=== PATIENT | female | born 1930 | race Caucasian/White ===

== ENCOUNTER → 2016-07-21 | Outpatient (REF) | payer MEDICARE ==
[2016-07-21 11:33] LABS: MEAN CORPUSCULAR HEMOGLOBIN 31.7 pg (27.0-33.0); MEAN CORPUSCULAR HGB CONC 32.7 g/dl (32.0-36.5); MEAN CORPUSCULAR VOLUME 97.2 fl (80.0-96.0)
[2016-07-21 11:56] LABS: ALBUMIN 3.5 GM/DL (3.2-5.2); ALBUMIN/GLOBULIN RATIO 1.25 (1.00-1.93); ALKALINE PHOSPHATASE 68 U/L (45-117); ALT/SGPT 16 U/L (12-78); ANION GAP 7 MEQ/L (8-16); AST/SGOT 11 U/L (15-37); BILIRUBIN,TOTAL 0.5 MG/DL (0.2-1.0); BLOOD UREA NITROGEN 23 MG/DL (7-18); CALCIUM LEVEL 8.7 MG/DL (8.8-10.2); CARBON DIOXIDE LEVEL 29 MEQ/L (21-32); CHLORIDE LEVEL 104 MEQ/L (98-107); CREATININE FOR GFR 0.88 MG/DL (0.55-1.02); GLOMERULAR FILTRATION RATE > 60.0 (>32); GLUCOSE, FASTING 97 MG/DL (83-110); POTASSIUM SERUM 4.9 MEQ/L (3.5-5.1); SODIUM LEVEL 140 MEQ/L (136-145); TOTAL PROTEIN 6.3 GM/DL (6.4-8.2)
== END ==
LOC: M SFHCPLAZ 09:01
PROVIDERS: ATTEND Internal Medicine
DX: R41.3 Other amnesia (principal); R60.0 Localized edema; R94.6 Abnormal results of thyroid function studies; E55.9 Vitamin D deficiency, unspecified

== ENCOUNTER → 2017-03-10 | Outpatient (CLI) | payer MEDICARE ==
[2017-03-10 17:33] LABS: ALBUMIN 3.7 GM/DL (3.2-5.2); ALBUMIN/GLOBULIN RATIO 1.23 (1.00-1.93); BILIRUBIN,TOTAL 0.6 MG/DL (0.2-1.0); CALCIUM LEVEL 9.1 MG/DL (8.8-10.2); CREATININE FOR GFR 0.98 MG/DL (0.55-1.02); GLOMERULAR FILTRATION RATE 57.6 (>32); POTASSIUM SERUM 4.9 MEQ/L (3.5-5.1); TOTAL PROTEIN 6.7 GM/DL (6.4-8.2)
[2017-03-10 17:48] LABS: BASO # 0.1 10^3/uL (0.0-0.2); BASO % 0.5 % (0.0-1.0); EOS # 0.3 10^3/uL (0.0-0.50); EOS % 3.2 % (0.0-3.0); IMMATURE GRANULOCYTE % 0.6 % (0-0); LYMPH # 2.9 10^3/uL (1.5-4.5); LYMPH % 30.9 % (24.0-44.0); MEAN CORPUSCULAR HEMOGLOBIN 30.7 pg (27.0-33.0); MEAN CORPUSCULAR HGB CONC 32.6 g/dl (32.0-36.5); MONO # 0.7 10^3/uL (0.0-0.8); MONO % 7.7 % (0.0-5.0); NEUTROPHILS # 5.3 10^3/uL (1.8-7.7); NEUTROPHILS % 57.1 % (36.0-66.0); PLATELET COUNT, AUTOMATED 236 10^3/uL (150-450); WHITE BLOOD COUNT 9.4 10^3/uL (4.0-10.0)
== END ==
LOC: M WUC 12:35
PROVIDERS: ATTEND Physician Assistant
DX: R53.83 Other fatigue (principal)

== ENCOUNTER → 2017-09-16 | Outpatient (REF) | payer MEDICARE ==
[2017-09-16 12:11] LABS: HEMATOCRIT 40.3 % (36.0-47.0); HEMOGLOBIN 13.4 g/dl (12.0-15.5); MEAN CORPUSCULAR HEMOGLOBIN 31.4 pg (27.0-33.0); MEAN CORPUSCULAR HGB CONC 33.3 g/dl (32.0-36.5); MEAN CORPUSCULAR VOLUME 94.4 fl (80.0-96.0); PLATELET COUNT, AUTOMATED 219 10^3/uL (150-450); RED BLOOD COUNT 4.27 10^6/uL (4.00-5.40); RED CELL DISTRIBUTION WIDTH 13.5 % (11.5-14.5); WHITE BLOOD COUNT 7.2 10^3/uL (4.0-10.0)
[2017-09-16 12:43] LABS: TOTAL 25(OH) VITAMIN D 34.1 NG/ML (30.0-100.0)
[2017-09-16 12:58] LABS: ALBUMIN 3.2 GM/DL (3.2-5.2); ALBUMIN/GLOBULIN RATIO 1.07 (1.00-1.93); ALKALINE PHOSPHATASE 74 U/L (45-117); ALT/SGPT 13 U/L (12-78); ANION GAP 3 MEQ/L (8-16); AST/SGOT 11 U/L (7-37); BILIRUBIN,TOTAL 0.5 MG/DL (0.2-1.0); BLOOD UREA NITROGEN 22 MG/DL (7-18); CALCIUM LEVEL 8.7 MG/DL (8.8-10.2); CARBON DIOXIDE LEVEL 32 MEQ/L (21-32); CHLORIDE LEVEL 108 MEQ/L (98-107); CREATININE FOR GFR 0.73 MG/DL (0.55-1.30); GLOMERULAR FILTRATION RATE > 60.0 (>32); GLUCOSE, FASTING 94 MG/DL (70-100); MAGNESIUM LEVEL 2.1 MG/DL (1.8-2.4); POTASSIUM SERUM 4.7 MEQ/L (3.5-5.1); SODIUM LEVEL 143 MEQ/L (136-145); TOTAL PROTEIN 6.2 GM/DL (6.4-8.2)
== END ==
LOC: M SFHCPLAZ 10:15
DX: J45.909 Unspecified asthma, uncomplicated (principal); R60.0 Localized edema; Z79.899 Other long term (current) drug therapy; R94.6 Abnormal results of thyroid function studies; E55.9 Vitamin D deficiency, unspecified
CPT/HCPCS: 83735

== ENCOUNTER → 2018-03-24 | Outpatient (REF) | payer MEDICARE ==
[2018-03-24 12:51] LABS: ALBUMIN 3.3 GM/DL (3.2-5.2); ALKALINE PHOSPHATASE 63 U/L (45-117); ALT/SGPT 13 U/L (12-78); ANION GAP 6 MEQ/L (8-16); AST/SGOT 14 U/L (7-37); BILIRUBIN,TOTAL 0.7 MG/DL (0.2-1.0); BLOOD UREA NITROGEN 16 MG/DL (7-18); CALCIUM LEVEL 8.6 MG/DL (8.8-10.2); CARBON DIOXIDE LEVEL 29 MEQ/L (21-32); CHLORIDE LEVEL 108 MEQ/L (98-107); CREATININE FOR GFR 0.79 MG/DL (0.55-1.30); GLOMERULAR FILTRATION RATE > 60.0 (>32); GLUCOSE, FASTING 91 MG/DL (70-100); SODIUM LEVEL 143 MEQ/L (136-145); TOTAL PROTEIN 6.3 GM/DL (6.4-8.2)
== END ==
LOC: M SFHCPLAZ 10:16
DX: R60.0 Localized edema (principal)
CPT/HCPCS: 83735

== ENCOUNTER → 2018-09-23 | Outpatient (REF) | payer MEDICARE ==
[2018-09-23 12:36] LABS: HEMATOCRIT 42.4 % (36.0-47.0); MEAN CORPUSCULAR HEMOGLOBIN 32.6 pg (27.0-33.0); MEAN CORPUSCULAR VOLUME 98.8 fl (80.0-96.0); PLATELET COUNT, AUTOMATED 221 10^3/uL (150-450); RED BLOOD COUNT 4.29 10^6/uL (4.00-5.40); WHITE BLOOD COUNT 6.9 10^3/uL (4.0-10.0)
[2018-09-23 12:46] LABS: ALBUMIN 3.4 GM/DL (3.2-5.2); ALT/SGPT 16 U/L (12-78); BILIRUBIN,TOTAL 0.6 MG/DL (0.2-1.0); BLOOD UREA NITROGEN 27 MG/DL (7-18); CALCIUM LEVEL 8.6 MG/DL (8.8-10.2); CARBON DIOXIDE LEVEL 33 MEQ/L (21-32); CHLORIDE LEVEL 105 MEQ/L (98-107); CREATININE FOR GFR 0.79 MG/DL (0.55-1.30); GLOMERULAR FILTRATION RATE > 60.0 (>32); GLUCOSE, FASTING 99 MG/DL (70-100); MAGNESIUM LEVEL 2.2 MG/DL (1.8-2.4); POTASSIUM SERUM 4.8 MEQ/L (3.5-5.1); SODIUM LEVEL 140 MEQ/L (136-145); TOTAL PROTEIN 6.5 GM/DL (6.4-8.2)
== END ==
LOC: M SFHCPLAZ 10:03
PROVIDERS: ATTEND Internal Medicine
DX: Z86.010 Personal history of colon polyps (principal); R60.0 Localized edema; R94.6 Abnormal results of thyroid function studies

== ENCOUNTER → 2019-03-24 | Outpatient (REF) | payer MEDICARE ==
[2019-03-24 11:41] LABS: ALBUMIN 3.8 GM/DL (3.2-5.2); BILIRUBIN,TOTAL 0.6 MG/DL (0.2-1.0); CALCIUM LEVEL 9.4 MG/DL (8.8-10.2); CREATININE FOR GFR 1.09 MG/DL (0.55-1.30); GLOMERULAR FILTRATION RATE 50.5 (>32); TOTAL PROTEIN 6.9 GM/DL (6.4-8.2)
== END ==
LOC: M SFHCPLAZ 08:55
PROVIDERS: ATTEND Internal Medicine
DX: R60.0 Localized edema (principal)

== ENCOUNTER → 2019-09-27 | Outpatient (REF) | payer MEDICARE ==
[~2019-09-27] MED LIST: BREO1INH PO; FURO80TA2 PO; GABA-1171 PO; NAPR-855 PO; SPIR-10 PO
[2019-09-27 17:10] LABS: HEMATOCRIT 39.5 % (36.0-47.0); MEAN CORPUSCULAR HEMOGLOBIN 32.2 pg (27.0-33.0); MEAN CORPUSCULAR HGB CONC 32.9 g/dl (32.0-36.5); MEAN CORPUSCULAR VOLUME 97.8 fl (80.0-96.0); PLATELET COUNT, AUTOMATED 249 10^3/uL (150-450); RED BLOOD COUNT 4.04 10^6/uL (4.00-5.40); WHITE BLOOD COUNT 7.2 10^3/uL (4.0-10.0)
[2019-09-27 17:24] LABS: ALBUMIN 3.2 GM/DL (3.2-5.2); ALT/SGPT 14 U/L (12-78); BILIRUBIN,TOTAL 0.3 MG/DL (0.2-1.0); BLOOD UREA NITROGEN 24 MG/DL (7-18); CALCIUM LEVEL 9.3 MG/DL (8.8-10.2); CARBON DIOXIDE LEVEL 30 MEQ/L (21-32); CHLORIDE LEVEL 109 MEQ/L (98-107); CREATININE FOR GFR 0.82 MG/DL (0.55-1.30); GLOMERULAR FILTRATION RATE > 60.0 (>32); GLUCOSE, FASTING 106 MG/DL (70-100); POTASSIUM SERUM 4.7 MEQ/L (3.5-5.1); SODIUM LEVEL 142 MEQ/L (136-145); TOTAL 25(OH) VITAMIN D 36.3 NG/ML (30.0-100.0); TOTAL PROTEIN 6.2 GM/DL (6.4-8.2)
== END ==
LOC: M SFHCPLAZ 15:02
PROVIDERS: ATTEND Internal Medicine
DX: J45.909 Unspecified asthma, uncomplicated (principal); R60.0 Localized edema; R94.6 Abnormal results of thyroid function studies; M85.80 Other specified disorders of bone density and structure, unspecified site
CPT/HCPCS: 36415; 80053; 82306; 84443; 85027; G0463

== ENCOUNTER 2019-10-04 12:55 | Emergency (ER) | payer MEDICARE ==
[~2019-10-04] VITALS: Ht 152.4 cm; Wt 61.4 kg
[2019-10-04] MEDS ORDERED: BREO1INH PO (13:09)
[2019-10-04] MEDS ORDERED: FURO80TA2 PO (13:09)
[2019-10-04] MEDS ORDERED: NAPR-855 PO (13:09)
[2019-10-04] MEDS ORDERED: SPIR-10 PO (13:09)
[2019-10-04] MEDS ORDERED: ACETAMINOPHEN 325 MG TAB PO ONE (13:15)
[2019-10-04] MEDS ORDERED: GABA-1171 PO (13:19)
--- NOTE | 2019-10-04 14:57 | REP ---
Right shoulder series: Four views. History: Injury in a fall. Findings: Four views right shoulder demonstrate chronic arthropathy changes with sclerosis and remodeling of the glenohumeral articulation. There are multiple loose bodies suspected in the superior aspect of the glenohumeral articulation. No fracture is seen. There is diffuse osteoporosis. Impression: Advanced chronic arthropathy with remodeling and loose bodies in the right glenohumeral articulation. Diffuse osteoporosis. No acute traumatic abnormality seen. Electronically Signed by Jack Beckwith MD 10/04/2019 02:48 P
--- NOTE | 2019-10-04 14:57 | REP ---
Right humerus: Two views. History: Injury in a fall. Findings: Two views of the right humerus demonstrate advanced degenerative arthropathy of the right glenohumeral articulation. There is elbows joint spurring as well. Diffuse osteopenia is noted. No fracture or subluxation is seen. Impression: No fracture noted. Advanced arthropathy at the shoulder. Electronically Signed by Jack Beckwith MD 10/04/2019 02:49 P
--- NOTE | 2019-10-04 14:58 | REP ---
Right knee series: Four views. History: Injury in a fall. Findings: Four views right knee demonstrate osteoarthritic spurring at the medial and patellofemoral compartment. Small joint effusion is felt to be present. There is chondrocalcinosis medially and laterally. No fractures seen. Impression: No fracture noted. Degenerative changes. Small joint effusion suspected. Electronically Signed by Jack Beckwith MD 10/04/2019 02:49 P
[2019-10-04 17:08] VITALS: BP 156/72
== END 2019-10-04 17:07 | disposition home or self-care (01) ==
LOC: M ED 12:55 → EDBD 12:55 → M ED 17:07
DX: S40.011A Contusion of right shoulder, initial encounter (principal); S80.01XA Contusion of right knee, initial encounter; W19.XXXA Unspecified fall, initial encounter; Y92.099 Unspecified place in other non-institutional residence as the place of occurrence of the external cause; Y93.01 Activity, walking, marching and hiking; Y99.9 Unspecified external cause status; Z99.89 Dependence on other enabling machines and devices; I10 Essential (primary) hypertension; J44.9 Chronic obstructive pulmonary disease, unspecified; M19.011 Primary osteoarthritis, right shoulder; M25.761 Osteophyte, right knee; Z88.0 Allergy status to penicillin

== ENCOUNTER → 2020-06-24 | Outpatient (CLI) | payer MEDICARE ==
[2020-06-24 16:30] LABS: BASO # 0.1 10^3/uL (0.0-0.2); BASO % 0.7 % (0.0-1.0); EOS # 0.2 10^3/uL (0.0-0.5); HEMATOCRIT 42.6 % (36.0-47.0); HEMOGLOBIN 13.8 g/dl (12.0-15.5); LYMPH # 2.6 10^3/uL (1.5-5.0); MEAN CORPUSCULAR HEMOGLOBIN 31.9 pg (27.0-33.0); MEAN CORPUSCULAR HGB CONC 32.4 g/dl (32.0-36.5); MEAN CORPUSCULAR VOLUME 98.4 fl (80.0-96.0); MONO # 0.7 10^3/uL (0.0-0.8); MONO % 8.7 % (2.0-8.0); NEUTROPHILS # 4.9 10^3/uL (1.5-8.5); NEUTROPHILS % 57.1 % (36.0-66.0); PLATELET COUNT, AUTOMATED 242 10^3/uL (150-450); RED BLOOD COUNT 4.33 10^6/uL (4.00-5.40); WHITE BLOOD COUNT 8.5 10^3/uL (4.0-10.0)
[2020-06-24 17:01] LABS: ALBUMIN 3.5 GM/DL (3.2-5.2); BILIRUBIN,TOTAL 0.3 MG/DL (0.2-1.0); CALCIUM LEVEL 9.9 MG/DL (8.8-10.2); CREATININE FOR GFR 1.08 MG/DL (0.55-1.30); POTASSIUM SERUM 4.3 MEQ/L (3.5-5.1); THYROID STIMULATING HORMONE 3.32 uIU/ML (0.358-3.740); TOTAL 25(OH) VITAMIN D 38.8 NG/ML (30.0-100.0); TOTAL PROTEIN 6.6 GM/DL (6.4-8.2)
== END ==
LOC: M WUC 14:35
PROVIDERS: ATTEND Internal Medicine
DX: R60.0 Localized edema (principal); J45.909 Unspecified asthma, uncomplicated; M85.80 Other specified disorders of bone density and structure, unspecified site; R94.6 Abnormal results of thyroid function studies; Z86.010 Personal history of colon polyps

== ENCOUNTER → 2020-07-09 | Outpatient (CLI) | payer MEDICARE ==
[2020-07-09 15:51] LABS: PLATELET COUNT, AUTOMATED 223 10^3/uL (150-450)
[2020-07-09 16:10] LABS: COLLAGEN EPINEPHRINE 110 SECONDS (74-162)
== END ==
LOC: M WUC 14:25
PROVIDERS: ATTEND Physician Assistant
DX: M47.812 Spondylosis without myelopathy or radiculopathy, cervical region (principal)

== ENCOUNTER 2020-11-25 18:37 | Emergency (ER) | payer MEDICARE ==
[~2020-11-25] VITALS: Ht 142.2 cm; Wt 65.9 kg
[2020-11-25] MEDS ORDERED: ALBUTEROL SULFATE 2.5 MG/0.5 ML INH NEB SOLN INH PRN (20:40)
--- NOTE | 2020-11-25 21:22 | REPVR ---
PROCEDURE INFORMATION: Exam: XR Chest Exam date and time: 11/25/2020 8:35 PM Age: 89 years old Clinical indication: Cough and dyspnea; Additional info: Dyspnea/cough TECHNIQUE: Imaging protocol: XR of the chest. Views: 1 view. COMPARISON: CR CHEST 2 VIEW 07/09/2015 5:59 PM FINDINGS: Lungs: There are no interval infiltrates. Pleural spaces: Unremarkable. No pleural effusion. No pneumothorax. Heart/Mediastinum: The heart and mediastinum are unchanged. Bones/joints: Degenerative change of the shoulders bilaterally. Mild levoscoliosis of the lower thoracic spine which is unchanged. IMPRESSION: Stable chest since 07/09/2015. No acute interval process is identified. Electronically signed by: Blayne Paniagua On 11/25/2020 21:22:09 PM
[2020-11-25 21:42] LABS: BASO % 0.7 % (0.0-1.0); EOS # 0.4 10^3/uL (0.0-0.5); EOS % 7.1 % (0.0-3.0); HEMATOCRIT 40.8 % (36.0-47.0); LYMPH # 1.5 10^3/uL (1.5-5.0); LYMPH % 27.5 % (24.0-44.0); MEAN CORPUSCULAR HEMOGLOBIN 30.6 pg (27.0-33.0); MEAN CORPUSCULAR HGB CONC 31.9 g/dl (32.0-36.5); MONO # 0.7 10^3/uL (0.0-0.8); MONO % 13.4 % (2.0-8.0); NEUTROPHILS # 2.8 10^3/uL (1.5-8.5); NEUTROPHILS % 51.1 % (36.0-66.0); PLATELET COUNT, AUTOMATED 200 10^3/uL (150-450); RED BLOOD COUNT 4.25 10^6/uL (4.00-5.40); WHITE BLOOD COUNT 5.5 10^3/uL (4.0-10.0)
[2020-11-25 22:09] LABS: ALBUMIN 3.2 GM/DL (3.2-5.2); ALT/SGPT 16 U/L (12-78); BILIRUBIN,DIRECT 0.1 MG/DL (0.0-0.2); BILIRUBIN,TOTAL 0.3 MG/DL (0.2-1.0); BLOOD UREA NITROGEN 18 MG/DL (7-18); CALCIUM LEVEL 8.9 MG/DL (8.8-10.2); CARBON DIOXIDE LEVEL 30 MEQ/L (21-32); CHLORIDE LEVEL 110 MEQ/L (98-107); CK-MB VALUE MASS < 1.0 NG/ML (<3.6); CPK CREATINE PHOSPHOKINASE 27 U/L (26-192); CREATININE FOR GFR 0.96 MG/DL (0.55-1.30); GLOMERULAR FILTRATION RATE 58.4 (>32); GLUCOSE, FASTING 86 MG/DL (70-100); NT-PRO BNP 494 PG/ML (<450); POTASSIUM SERUM 4.6 MEQ/L (3.5-5.1); SODIUM LEVEL 144 MEQ/L (136-145); TOTAL PROTEIN 6.1 GM/DL (6.4-8.2); TROPONIN I < 0.02 NG/ML (< 0.10)
[2020-11-25] MEDS ORDERED: ALBUTEROL 90 MCG/ACT 8GM HFA INHALER INH SCH (22:15)
[2020-11-25 22:39] VITALS: BP 160/70
[2020-11-25] MEDS ORDERED: GABA-1171 PO (22:48)
[2020-11-25] MEDS ORDERED: IPRA0.00 INH (22:48)
[2020-11-25] MEDS ORDERED: HOME MED LIST COMPLETE! XX SCH (22:50)
--- NOTE | 2020-11-26 07:44 | ECGEPIP ---
[facility] - ED Test Date: 2020-11-25 Pat Name: TIGRE BAHENA Department: Room: - Gender: Female Contracts Administrator: : [id number] Requested By: KAY Diaz PA-C Order Number: [id number] Reading MD: Ramírez Youngblood Measurements Intervals [place] Rate: 71 P: 63 ME: 176 QRS: -44 QRSD: 84 T: 17 QT: 378 QTc: 410 Interpretive Statements Normal sinus rhythm Left axis deviation Delayed anterior R wave progression Minimal voltage criteria for LVH, may be normal variant Nonspecific ST-T wave abnormalities Baseline artifact Comparison tracing not on file Electronically Signed on 11-26-2020 7:43:35 EDT by Ramírez Youngblood
== END 2020-11-25 23:34 | disposition home or self-care (01) ==
LOC: M ED 18:37
DX: U07.1 COVID-19 (principal); J45.909 Unspecified asthma, uncomplicated; Z79.51 Long term (current) use of inhaled steroids; Z79.899 Other long term (current) drug therapy; Z88.0 Allergy status to penicillin
CPT/HCPCS: 36600; 71045; 80048; 80076; 82550; 82553; 82803; 83880; 84484; 85025; 93005; 99284; M0243

== ENCOUNTER 2020-11-25 23:35 | Outpatient (CLI) | payer MEDICARE ==
--- NOTE | 2020-11-25 22:55 | HPEPDOC ---
[facility] Medical History & Physical Date of Admission Nov 25, 2020 Date of Service: Nov 25, 2020 Primary Care Physician: Cullen Sosa Attending Physician: LEONEL DAHL MD History and Physical TIME OF SERVICE: 1205am CHIEF COMPLAINT: exposure to person with COVID HISTORY OF PRESENT ILLNESS: a 89 yr old F went to an urgent care center to get tested for COVID today because her and her daughter were exposed to someone with COVID. She has had a cough mild shortness of breath, congestion & fatigue but denies feeling like her asthma is acting up. Surprisingly her COVID-19 test was positive, while her daughters test was negative. She has taken Moderna vaccines for COVID. REVIEW OF SYSTEMS: 10-point review of systems negative except as listed in HPI PAST MEDICAL/ SURGICAL HISTORY: Asthma DLP ALLERGIES: Please see below. HOME MEDICATIONS: Please see below. PHYSICAL EXAMINATION: Vital Signs Date Time Temp Pulse Resp B/P (MAP) Pulse Ox O2 Delivery O2 Flow Rate FiO2 11/25/20 22:39 98.2 76 16 160/70 (100) 97 Room Air GENERAL APPEARANCE: well nourished and developed / NAD LUNGS: lungs are CTAB on RA /no wheezing PSYCHIATRIC: A&Ox 3 LABORATORY DATA: CBC and Chemistry reviewed - unremarkable IMAGING: Chest Xray "IMPRESSION: Stable chest since 07/09/2015. No acute interval process is identified." MICROBIOLOGY: COVID 19 + ASSESSMENT: is an 89 yr old with a hx of Asthma who will receive MAB infusion for COVID 19 infection (despite receiving her vaccines.) PLAN: 1 Post vaccination COVID-19 infection Plan: COVID anti-body infusion order set Home Medications Scheduled Fluticasone/Vilanterol (Breo Ellipta 100-25 Mcg INH) 1 Each Blst.w.dev, 1 PUFF PO DAILY Furosemide (Furosemide) 80 Mg Tablet, 160 MG PO DAILY Gabapentin (Gabapentin) 100 Mg Capsule, 200 MG PO BID Spironolactone (Spironolactone) 25 Mg Tablet, 50 MG PO DAILY Scheduled PRN Ipratropium/Albuterol Sulfate (Iprat-Albut 0.5-3(2.5) mg/3 ml) 3 Ml Ampul.neb, 3 ML INH Q4H PRN for COUGH/WHEEZE/SOB Naproxen (Naproxen) 375 Mg Tablet, 375 MG PO BID PRN for MODERATE PAIN (PS 5-7) Allergies Coded Allergies: Penicillins (Verified Allergy, Unknown, 10/04/19) LEONEL DAHL MD Nov 25, 2020 22:55
[2020-11-25 23:35] VITALS: BP 152/88
[~2020-11-25 23:35] MED LIST changes: +ALBUTEROL 90 MCG/ACT 8GM HFA INHALER INH PRN; +ALBUTEROL SULFATE 2.5 MG/0.5 ML INH NEB SOLN INH PRN; +EPINEPHrine INJ 1 MG/ML 1ML AMP IM PRN; +IPRA0.00 INH; +NS 1,000 ML IV SCH; +diphenhydrAMINE 50MG/ML VIAL (J1200) IV PRN; +methylPREDNISolone 125MG 2ML VIAL IV PRN
[2020-11-26 01:20] VITALS: BP 152/88
[2020-11-26 01:45] VITALS: BP 150/90
[2020-11-26] MEDS ORDERED: CASIRIVIMAB/IMDEVIMAB 1,200 MG in NS 250 ML IV ONE (02:00)
[2020-11-26 02:15] VITALS: BP 150/88
== END 2020-11-26 03:29 | disposition home or self-care (01) ==
LOC: M OPCLI4 23:35 → M 4MAIN 11-26 00:18 → M OPCLI4 11-26 03:29
PROVIDERS: ATTEND Internal Medicine
DX: U07.1 COVID-19 (principal); Z88.0 Allergy status to penicillin

== ENCOUNTER → 2021-02-18 | Outpatient (CLI) | payer MEDICARE ==
[~2021-02-18] MED LIST changes: -ALBUTEROL 90 MCG/ACT 8GM HFA INHALER INH PRN; -ALBUTEROL SULFATE 2.5 MG/0.5 ML INH NEB SOLN INH PRN; -EPINEPHrine INJ 1 MG/ML 1ML AMP IM PRN; -NS 1,000 ML IV SCH; -diphenhydrAMINE 50MG/ML VIAL (J1200) IV PRN; -methylPREDNISolone 125MG 2ML VIAL IV PRN
--- NOTE | 2021-02-18 12:07 | REPVR ---
PROCEDURE INFORMATION: Exam: MR Lumbar Spine Without Contrast Exam date and time: 02/18/2021 9:53 AM Age: 89 years old Clinical indication: Low back pain; Additional info: Spondyls w/o myelopathy or radiculopathy, lumbosacr region TECHNIQUE: Imaging protocol: Multiplanar magnetic resonance images of the lumbar spine without intravenous contrast. COMPARISON: No relevant prior studies available. FINDINGS: Vertebrae: Localizing view shows S-shaped scoliosis. There is grade 1 retrolisthesis T12 on L1 and L1 on L2 and grade 1 anterolisthesis L3 on L4 and L4 on L5. There is diffuse disc desiccation and disc height loss. There are endplate degenerative marrow changes. No evidence of suspicious bone marrow lesions. Spinal cord: Normal signal. No cord compression. T12-L1: T11-T12 and T12-L1 show posterior osteophytes, disc bulges, and facet degenerative changes with mild bilateral T11-T12 and right T12-L1 and moderate to severe left T12-L1 neural foraminal narrowing on sagittal imaging. L1-L2: Diffuse disc bulge, thickening of ligamentum flavum, posterior osteophyte, and facet degenerative changes. There is severe bilateral neural foraminal narrowing. There is mild spinal stenosis. L2-L3: Diffuse disc bulge, thickening of ligamentum flavum, posterior osteophyte, and facet degenerative changes. There is moderate to severe spinal stenosis. There is moderate right and moderate to severe left neural foraminal narrowing. L3-L4: Diffuse disc bulge, thickening of ligamentum flavum, posterior osteophyte, and facet degenerative changes. There is high-grade spinal stenosis with completely effaced spinal fluid around cauda equina. There is severe right and moderate to severe left neural foraminal narrowing. L4-L5: Diffuse disc bulge, thickening of ligamentum flavum, posterior osteophyte, and facet degenerative changes. There is moderate spinal stenosis. There is severe right and mild left neural foraminal narrowing. L5-S1: L5-S1 shows moderate disc bulge and facet degenerative changes. There is no evidence of spinal stenosis or neural foraminal narrowing. Soft tissues: There is subcutaneous edema in posterior soft tissues typically nonsignificant finding. IMPRESSION: Degenerative changes as described. Spinal stenosis is greatest and high-grade at L3-L4, moderate to severe L2-L3, moderate L4-L5, and mild L1-L2. Neural foraminal narrowing is severe bilateral L1-L2, moderate right and moderate to severe left L2-L3, severe right and moderate to severe left L3-L4, severe right and mild left L4-L5. Electronically signed by: Patience Jones On 02/18/2021 12:07:26 PM
== END ==
LOC: M RAD 08:20
PROVIDERS: ATTEND Physical Medicine & Rehabilitation
DX: M47.817 Spondylosis without myelopathy or radiculopathy, lumbosacral region (principal); M51.26 Other intervertebral disc displacement, lumbar region; M51.27 Other intervertebral disc displacement, lumbosacral region; M48.061 Spinal stenosis, lumbar region without neurogenic claudication

== ENCOUNTER → 2021-03-21 | Outpatient (CLI) | payer MEDICARE ==
[2021-03-21 15:56] LABS: INR 1.33; PROTHROMBIN TIME 16.9 SECONDS (12.7-14.5)
[2021-03-21 15:57] LABS: PARTIAL THROMBOPLASTIN TIME 61.8 SECONDS (25.9-37.0)
== END ==
LOC: M WUC 14:30
PROVIDERS: ATTEND Physical Medicine & Rehabilitation
DX: M48.061 Spinal stenosis, lumbar region without neurogenic claudication (principal)

== ENCOUNTER → 2021-03-25 | Outpatient (CLI) | payer MEDICARE | LOC: M WUC 10:09 | PROVIDERS: ATTEND Physical Medicine & Rehabilitation | DX: Z01.812 Encounter for preprocedural laboratory examination (principal) ==

== ENCOUNTER → 2021-03-31 | Outpatient (CLI) | payer MEDICARE | LOC: M WUC 09:45 | PROVIDERS: ATTEND Physician Assistant Medical | DX: M79.605 Pain in left leg (principal) ==

== ENCOUNTER → 2021-08-20 | Outpatient (CLI) | payer MEDICARE ==
[2021-08-20 13:05] LABS: BASO # 0.1 10^3/uL (0.0-0.2); BASO % 0.7 % (0.0-1.0); EOS # 0.3 10^3/uL (0.0-0.5); EOS % 3.6 % (0.0-3.0); HEMATOCRIT 39.4 % (36.0-47.0); HEMOGLOBIN 12.8 g/dl (12.0-15.5); LYMPH % 40.7 % (24.0-44.0); MEAN CORPUSCULAR HEMOGLOBIN 31.4 pg (27.0-33.0); MEAN CORPUSCULAR HGB CONC 32.5 g/dl (32.0-36.5); MEAN CORPUSCULAR VOLUME 96.6 fl (80.0-96.0); MONO # 0.7 10^3/uL (0.0-0.8); MONO % 9.5 % (2.0-8.0); NEUTROPHILS # 3.4 10^3/uL (1.5-8.5); NEUTROPHILS % 45.2 % (36.0-66.0); PLATELET COUNT, AUTOMATED 200 10^3/uL (150-450); RED BLOOD COUNT 4.08 10^6/uL (4.00-5.40); WHITE BLOOD COUNT 7.5 10^3/uL (4.0-10.0)
[2021-08-20 13:22] LABS: ALBUMIN 3.6 GM/DL (3.2-5.2); BILIRUBIN,TOTAL 0.7 MG/DL (0.2-1.0); CALCIUM LEVEL 9.5 MG/DL (8.8-10.2); CREATININE FOR GFR 1.03 MG/DL (0.55-1.30); GLOMERULAR FILTRATION RATE 53.7 (>32); MAGNESIUM LEVEL 2.2 MG/DL (1.8-2.4); POTASSIUM SERUM 4.4 MEQ/L (3.5-5.1); THYROID STIMULATING HORMONE 2.28 uIU/ML (0.358-3.740); TOTAL PROTEIN 6.3 GM/DL (6.4-8.2)
== END ==
LOC: M WUC 09:18
PROVIDERS: ATTEND Internal Medicine
DX: R60.0 Localized edema (principal); J45.909 Unspecified asthma, uncomplicated; R94.6 Abnormal results of thyroid function studies